=== PATIENT | female | born 1995 | race Caucasian/White ===

== ENCOUNTER 2021-07-05 13:04 | Emergency (ER) | payer MEDICAID ==
[~2021-07-05] VITALS: Ht 160 cm; Wt 65.9 kg
[2021-07-05 13:06] VITALS: BP 131/76
== END 2021-07-05 14:47 | disposition left against medical advice (07) ==
LOC: EMS 13:12
DX: R21 Rash and other nonspecific skin eruption (principal); Z53.21 Procedure and treatment not carried out due to patient leaving prior to being seen by health care provider